=== PATIENT | female | born 1975 | race Caucasian/White ===

== ENCOUNTER 2016-08-08 01:27 | Emergency (ER) | payer BC, OTHER ==
[~2016-08-08] VITALS: Ht 167.6 cm; Wt 67.1 kg
[~2016-08-08 01:27] MED LIST: PRENTAB26 PO
[2016-08-08 01:30] VITALS: Ht 167.6 cm; Wt 67.1 kg
[2016-08-08] MEDS ORDERED: DEXT30TA7 PO (02:03)
[2016-08-08] MEDS ORDERED: SODIUM CHLORIDE 0.9% 1000ML 1,000 ML IV STA (03:20)
[2016-08-08 03:29] LABS: BASO % 0.4 %; BASO ABS # 0.02 K/uL (0-0.2); COMPLETE YES; EOS % 1.1 %; HEMATOCRIT 39.1 % (37-47); IG% 0.2 %; LYMPH % 15.8 %; LYMPH ABS # 0.74 K/uL (1.2-3.4); MEAN CELL VOLUME 90.7 fL (80-100); MEAN CORPUSCULAR HEMOGLOBIN 32.3 pg (25-34); MEAN CORPUSCULAR HGB CONC 35.5 g/dl (32-36); MEAN PLATELET VOLUME 10.7 fL (7.4-10.4); MONO % 12.8 %; NEUT % 69.7 %; PLATELET COUNT 265 K/uL (130-400); RED BLOOD COUNT 4.31 M/uL (4.2-5.4); WHITE BLOOD COUNT 4.67 K/uL (4.8-10.8)
[2016-08-08 03:37] VITALS: O2SAT 94
[2016-08-08 03:37] LABS: PROTHROMBIN TIME (PATIENT) 11.1 SECONDS (9.0-12.0)
[2016-08-08 03:38] LABS: BUN/CREATININE RATIO 8.9 (10-20); CALCIUM 8.6 mg/dl (8.5-10.1); MAGNESIUM 1.9 mg/dl (1.8-2.4); POTASSIUM 3.7 mmol/L (3.5-5.1)
[2016-08-08 03:40] LABS: ALB/GLOB RATIO 1.1 (0.9-2)
[2016-08-08 03:58] LABS: CKMB/CK RATIO 0.4 (0-3.0); THYROID STIMULATING HORMONE 2.74 uIu/ml (0.300-4.500)
[2016-08-08 04:30] LABS: URINE APPEARANCE CLEAR (CLEAR); URINE BILIRUBIN NEG (NEG); URINE COLOR YELLOW; URINE NITRITE NEG (NEG); URINE PH 5.5 (4.5-7.5); URINE SPECIFIC GRAVITY 1.009 (1.000-1.030); UROBILINOGEN NEG (NEG); ZZUR CULT IF INDIC CLEAN CATCH NO
[2016-08-08 04:42] LABS: MANUAL MICROSCOPIC REQUIRED? NO; REVIEW REQ? NO
[2016-08-08] MEDS ORDERED: HYCODAN 60ML BOTTLE HOMEPACK PO ONE (04:45)
--- NOTE | 2016-08-08 04:49 | EMERGENCY ROOM VISIT NOTE ---
History First contact with patient: 02:49 Chief Complaint: NAUSEA Stated Complaint: NAUSEAPASSED OUT COUGH, Nursing Triage Summary: Pt reports she has had cold-like symptoms for one day. She took mucinex DM at 1630. Pt became nauseated and vomited and had an episode of syncope at 1930. Pt had another episode of nausea with near syncope at 2330. Prior to arrival, pt had another episode of nausea and near syncope. History of Present Illness The patient is a 41 year old female who presents to the Emergency Department by private vehicle with her for evaluation of her possible reaction to medication as well as sacral episodes. The patient reports that she took Mucinex DM around 1630 this evening for an ongoing cough. She had taken this medication approximately 10 years ago and had a similar reaction of lightheadedness. She reports that she felt extremely lightheaded, nausea, salivation, and sweatiness. She passed out on 2 separate occasions. She did not strike her head. She did not urinate herself. She did not bite her tongue. She denies any pain and reports that she is actually feeling mildly better at this time. She rates her discomfort a 0/10. She denies any fevers, chills, headaches, blurry vision, double vision, slurred speech, facial droop, unilateral weakness/numbness, chest pain, palpitations, shortness of breath, pleuritic pain, hematemesis, hematochezia, melena, hematuria, or dysuria. Review of Systems A complete 10-point Review of Systems was discussed with the patient, with pertinent positives and negatives listed in the History of Present Illness. All remaining Review of Systems questions can be considered negative unless otherwise specified. Social History Smoking Status: Never Smoker Smokeless Tobacco Use: No Drug Use: none Marital Status: Housing Status: lives with family Current/Historical Medications Scheduled PRN Dextromethorphan-Guaifenesin (Mucinex Dm), 1 TAB PO Q12 PRN for Nasal Congestion Allergies Coded Allergies: Penicillins (Verified Allergy, Intermediate, RASH AND SWELLING BILATERAL FEET, 08/08/16) Doxycycline (Verified Allergy, Unknown, HIVES, 08/08/16) Physical Exam Vital Signs Date Time Temp Pulse Resp B/P Pulse Ox O2 Delivery O2 Flow Rate FiO2 08/08/16 05:00 68 18 105/59 97 08/08/16 03:41 63 08/08/16 03:37 94 Room Air 08/08/16 03:31 64 16 103/61 97 Room Air 69 105/77 80 115/74 08/08/16 01:30 64 18 114/77 97 Room Air Pain Rating (0-10): 0 Physical Exam VITAL SIGNS - Vital signs and nursing notes were reviewed. GENERAL - 41-year-old female appearing her stated age who is in no acute distress. Communicates well with provider and answers questions appropriately. HEAD - Normocephalic, Atraumatic. No Le's Sign or Raccoon's Eyes. No depressed skull fractures palpable. EYES - PERRL with EOMI bilaterally. Sclera anicteric. Palpebral conjunctiva pink and moist with no injection noted. EARS - No deformities of external structures noted on gross examination bilaterally. No pain elicited with palpation of the tragus bilaterally. External auditory canals without discharge or otorrhea. Tympanic membranes pearly stevens without retraction or bulging. No fluid or purulent material visualized behind the TM. Handle of malleus, umbo, cone of light, pars tensa/ flaccid all easily visualized. NOSE - Midline and without cyanosis. No epistaxis or purulent drainage noted. Septum midline without deviation or septal hematoma noted. MOUTH/OROPHARYNX - Without perioral cyanosis. Buccal mucosa pink and moist and without leukoplakia. Tongue midline with equal elevation of palate bilaterally. No tonsillar hypertrophy, erythema, or exudates noted. Good dentition noted. NECK - Neck with FROM. Supple to palpation. No lymphadenopathy noted. No nuchal rigidity. LUNGS - Chest wall symmetric without accessory muscle use, intercostals retractions, or central cyanosis. Normal vesicular breath sounds CTA B/L. No wheezes, rales, or rhonchi appreciated. CARDIAC - RRR with S1/S2. No murmur, rubs, or gallops appreciated. ABDOMEN - Abdominal contour flat without pulsations or visible masses. BS normoactive all four quadrants. No tenderness, palpable masses, hepatosplenomegaly, or ascites noted. EXTREMITIES - No pretibial edema present. +3/5 radial and dorsalis pedis pulses palpated throughout. FROM with no tremors, fasciculations, or clonus noted on PROM throughout. +5/5 strength noted in UE/LE bilaterally. NEUROLOGIC - Cranial nerves II through XII grossly intact. Sensory intact to light touch throughout. Patellar reflexes +2/4, Achilles reflexes present. Patient able to perform rapid alternating movements appropriately. PSYCH - A&Ox3 and cooperates fully with examiner. Pt is very pleasant and interacts well with examiner. Medical Decision & Procedures ER Provider Diagnostic Interpretation: Radiological imaging and reports were reviewed by myself. Radiologist's Interpretation as follows: CHEST ONE VIEW PORTABLE HISTORY: syncope COMPARISON: None. FINDINGS: The lungs are clear. Cardiac silhouette is normal in size. No pleural effusions. No pneumothorax. IMPRESSION: No acute process. Laboratory Results 08/08/16 01:40 Red Blood Count 4.31, Mean Corpuscular Volume 90.7, Mean Corpuscular Hemoglobin 32.3, Mean Corpuscular Hemoglobin Concent 35.5, Mean Platelet Volume 10.7, Neutrophils (%) (Auto) 69.7, Lymphocytes (%) (Auto) 15.8, Monocytes (%) (Auto) 12.8, Eosinophils (%) (Auto) 1.1, Basophils (%) (Auto) 0.4, Neutrophils # (Auto ) 3.25, Lymphocytes # (Auto) 0.74, Monocytes # (Auto) 0.60, Eosinophils # (Auto ) 0.05, Basophils # (Auto) 0.02 08/08/16 01:40 Test 08/08/16 01:40 08/08/16 03:31 08/08/16 04:13 White Blood Count 4.67 K/uL (4.8-10.8) Red Blood Count 4.31 M/uL (4.2-5.4) Hemoglobin 13.9 g/dL (12.0-16.0) Hematocrit 39.1 % (37-47) Mean Corpuscular Volume 90.7 fL (80-100) Mean Corpuscular Hemoglobin 32.3 pg (25-34) Mean Corpuscular Hemoglobin Concent 35.5 g/dl (32-36) Platelet Count 265 K/uL (130-400) Mean Platelet Volume 10.7 fL (7.4-10.4) Neutrophils (%) (Auto) 69.7 % Lymphocytes (%) (Auto) 15.8 % Monocytes (%) (Auto) 12.8 % Eosinophils (%) (Auto) 1.1 % Basophils (%) (Auto) 0.4 % Neutrophils # (Auto) 3.25 K/uL (1.4-6.5) Lymphocytes # (Auto) 0.74 K/uL (1.2-3.4) Monocytes # (Auto) 0.60 K/uL (0.11-0.59) Eosinophils # (Auto) 0.05 K/uL (0-0.5) Basophils # (Auto) 0.02 K/uL (0-0.2) RDW Standard Deviation 39.9 fL (36.4-46.3) RDW Coefficient of Variation 11.9 % (11.5-14.5) Immature Granulocyte % (Auto) 0.2 % Immature Granulocyte # (Auto) 0.01 K/uL (0.00-0.02) Prothrombin Time 11.1 SECONDS (9.0-12.0) Prothromb Time International Ratio 1.0 (0.9-1.1) Activated Partial Thromboplast Time 25.1 SECONDS (21.0-31.0) Partial Thromboplastin Ratio 1.0 Anion Gap 10.0 mmol/L (3-11) Est Creatinine Clear Calc Drug Dose 69.3 ml/min Estimated GFR () 81.0 Estimated GFR (Non- 69.9 BUN/Creatinine Ratio 8.9 (10-20) Calcium Level 8.6 mg/dl (8.5-10.1) Magnesium Level 1.9 mg/dl (1.8-2.4) Total Bilirubin 0.7 mg/dl (0.2-1) Aspartate Amino Transf (AST/SGOT) 13 U/L (15-37) Alanine Aminotransferase (ALT/SGPT) 18 U/L (12-78) Alkaline Phosphatase 61 U/L (45-117) Total Creatine Kinase 150 U/L (26-192) Creatine Kinase MB 0.6 ng/ml (0.5-3.6) Creatine Kinase MB Ratio 0.4 (0-3.0) Total Protein 7.6 gm/dl (6.4-8.2) Albumin 4.0 gm/dl (3.4-5.0) Globulin 3.6 gm/dl (2.5-4.0) Albumin/Globulin Ratio 1.1 (0.9-2) Thyroid Stimulating Hormone (TSH) 2.740 uIu/ml (0.300-4.500) Bedside D-Dimer 194 ng/mlFEU (0-450) Bedside Troponin I 0.000 ng/ml (0-0.045) Urine Color YELLOW Urine Appearance CLEAR (CLEAR) Urine pH 5.5 (4.5-7.5) Urine Specific [place] 1.009 (1.000-1.030) Urine Protein NEG (NEG) Urine Glucose (UA) NEG (NEG) Urine Ketones NEG (NEG) Urine Occult Blood NEG (NEG) Urine Nitrite NEG (NEG) Urine Bilirubin NEG (NEG) Urine Urobilinogen NEG (NEG) Urine Leukocyte Esterase NEG (NEG) Urine Test NEG (NEG) Medications Administered Medications (Trade) Dose Ordered Sig/Corina Route Start Time Stop Time Status Last Admin Dose Admin Sodium Chloride (Nss 1000ml) 1,000 ml @ 999 mls/hr Q1H1M STAT IV 08/08/16 03:20 08/08/16 04:20 DC 08/08/16 03:36 999 MLS/HR Hydrocodone Bit/ Homatropine Methylb (Hycodan Elix Homepack 5/1.5MG/ 5ML) 1 homepack UD ONCE PO 08/08/16 04:45 08/08/16 04:46 DC 08/08/16 04:56 1 HOMEPACK Procedure Patient was placed on the secured entrance monitor and monitored throughout the entire extent of their stay. In addition, the patient's pulse oximetry was monitored throughout the entire stay. Any abnormalities or aberrancies were addressed appropriately. ECG Indication: syncope Rate (beats per minute): 65 Rhythm: normal sinus Findings: no acute ischemic change, no ectopy Comparison ECG Date: no prior available ED Course Patient was seen and evaluated by myself. Labs were drawn, saline lock in place. The patient was hydrated with 1000 mL normal saline bolus. She declines a think for pain or nausea. EKG and chest x-rays were obtained. Laboratory results demonstrate no acute leukocytosis, worrisome anemia, or bandemia. The patient has no significant electrolyte abnormalities. Cardiac enzymes are negative. Troponin was negative. D-dimer was not elevated. Urinalysis does not suggest infection. Urine is negative. On review the patient, she feels much better at this time. The patient was educated on today's laboratory studies and imaging findings. She was encouraged to follow- up with her primary care provider from today's visit. She was educated on worrisome symptoms for return visit to the emergency department. Patient discharged home afebrile and in good condition. She was provided a Hycodan home pack for her ongoing cough. Medical Decision Given the patient's presentation and stated complaints, I did elect to perform the above-mentioned workup. The patient presents today after 62. She did take Mucinex which she reports she is had an adverse reaction to in the past. Her episodes of syncope were preceded by lightheadedness, nausea, tunneling vision, and racing heart. The patient is experiencing vasovagal mediated syncope. Her EKG, cardiac enzymes, d-dimer, and chest x-ray suggests no other acute pathology at this point. The patient feels much better after IV fluid hydration. The patient will follow closely with her primary care provider from today's visit. She will return for any changing or worsening symptoms. Patient discharged home afebrile and in good condition. In the evaluation and treatment of this patient, the following differential diagnoses were considered: PA, ASC, Dysrhythmia, Angina, Mediastinitis, GERD, Esophagitis, PE, Pneumonia, Bronchitis, Costochondritis, Rib Fracture, Zoster. Impression Primary Impression: Syncope Additional Impression: Cough Departure Information Dispostion Home / Self-Care Condition GOOD Referrals Gio Rodriguez, D.O. (PCP) Patient Instructions ED Syncope Vasovagal, My [facility] Additional Instructions You've been seen in the emergency department today for your syncopal episodes and possible medication reaction. Drink plenty of fluids and stay well-hydrated. Follow-up with your primary care provider from today's visit. Return for any changing or worsening symptoms. Problem Qualifiers Primary Impression: Syncope Syncope type: vasovagal syncope Qualified Codes: R55 - Syncope and collapse
[2016-08-08 05:00] VITALS: BP 105/59; PULSE 68; O2SAT 97
--- NOTE | 2016-08-08 07:37 | DIAGNOSTIC IMAGING REPORT ---
CHEST ONE VIEW PORTABLE HISTORY: syncope COMPARISON: None. FINDINGS: The lungs are clear. Cardiac silhouette is normal in size. No pleural effusions. No pneumothorax. IMPRESSION: No acute process. Electronically signed by: Messi Danielle M.D. 08/08/2016 7:35 AM Dictated Date/Time: 08/08/2016 7:35 AM
== END 2016-08-08 05:00 | disposition home or self-care (01) ==
LOC: C.EDB 01:29
DX: R55 Syncope and collapse (principal); R05 Cough